=== PATIENT | male | born 1995 | race African-American/Black ===

== ENCOUNTER 2017-03-03 11:15 | Emergency (ER) | payer SELFPAY ==
[~2017-03-03] VITALS: Wt 80.7 kg
[2017-03-03] MEDS ORDERED: OXYCODONE HCL10 M1 PO (11:23)
[2017-03-03] MEDS ORDERED: ZYRTEC10 MG PO (12:42)
[2017-03-03] MEDS ORDERED: AMOXICILLIN500 M2 PO (12:42)
== END 2017-03-03 12:48 | disposition home or self-care (01) ==
LOC: ED 11:15
DX: J01.90 Acute sinusitis, unspecified (principal); F17.200 Nicotine dependence, unspecified, uncomplicated; Z91.018 Allergy to other foods